=== PATIENT | female | born 1945 | race Caucasian/White ===

== ENCOUNTER 2022-09-09 10:59 | Emergency (ER) | payer OTHER ==
[~2022-09-09] VITALS: Ht 162.6 cm; Wt 53.5 kg
== END 2022-09-09 14:38 | disposition home or self-care (01) ==
LOC: ER 10:59
DX: S40.022A Contusion of left upper arm, initial encounter (principal); W18.30XA Fall on same level, unspecified, initial encounter; Y93.01 Activity, walking, marching and hiking; Y92.410 Unspecified street and highway as the place of occurrence of the external cause; Y99.9 Unspecified external cause status

== ENCOUNTER 2023-05-29 09:24 | Outpatient (CLI) | payer OTHER | END 2023-05-29 10:47 | disposition home or self-care (01) | LOC: SONOGRAMA 09:24 | PROVIDERS: ATTEND Physical Medicine & Rehabilitation | DX: M79.641 Pain in right hand (principal) ==

== ENCOUNTER 2024-09-19 10:18 | Outpatient (CLI) | payer OTHER | END 2024-09-19 10:24 | disposition home or self-care (01) | LOC: RAD 10:18 | PROVIDERS: ATTEND Physical Medicine & Rehabilitation Hospice and Palliative Medicine | DX: M54.2 Cervicalgia (principal) ==

== ENCOUNTER 2025-04-07 09:46 | Outpatient (CLI) | payer OTHER | END 2025-04-07 09:49 | disposition home or self-care (01) | LOC: RAD 09:46 | PROVIDERS: ATTEND Physical Medicine & Rehabilitation | DX: M25.552 Pain in left hip (principal) ==